=== PATIENT | female | born 1980 | race African-American/Black ===

== ENCOUNTER → 2016-06-17 | Outpatient (CLI) | payer OTHER ==
[~2016-06-17] MED LIST: 'PARAFON FORTE500 M1 PO; AMOXICILLIN500 MG PO; AMOXIL500 MG PO; ANAPROX DS550 MG PO; ANTIVERT/2525 MG PO; AUGMENTIN 875875 MG PO; CATAFLAM50 MG PO; CETIRIZINE HYDR10 MG PO; CIPRO500 MG PO; CIPROFLOXACIN500 MG PO; CYCLOBENZAPRINE10 MG PO; FLEXERIL10 MG PO; Fioricet 325 MG1 TAB PO; GOOD NEIGHBOR L10 MG PO; HYDROCODONE BIT1 T11 PO; KEFLEX500 MG PO; LOMOTIL 0.025 M1 TA1 PO; LOPRESSOR25 MG PO; MACROBID100 M1 PO; METRONIDAZOLE500 M1 PO; MOBIC15 MG PO; MOTRIN800 MG PO; NAPROSYN500 MG PO; NEURONTIN300 MG PO; NKHM; ORUDIS75 MG PO; OVRAL-21 50 MCG1 TAB PO; PENICILLIN VK500 MG PO; PERCOCET 325 MG1 TA2 PO; PERCOCET 325 MG1 TA6 PO; PRILOSEC20 MG PO; TOPIRAMATE50 MG PO; TRAMADOL HCL50 MG PO; ULTRAM50 MG PO; VIBRAMYCIN100 MG PO; VICODIN 500 MG-1 TAB PO; VITAMIN D50000 I3 PO; ZOFRAN ODT4 MG SL
[2016-06-18 16:06] LABS: HEPATITIS C VIRUS ANTIBODY <0.1 s/co (0.0-0.9)
[2016-06-19 07:05] LABS: HIV 1+2 AB + HIV1 P24 AG Non Reactive (Non Reactive)
== END | disposition home or self-care (01) ==
LOC: LAB 10:29
PROVIDERS: Internal Medicine
DX: Z71.1 Person with feared health complaint in whom no diagnosis is made (principal)

== ENCOUNTER 2016-07-01 21:20 | Emergency (ER) | payer OTHER ==
[~2016-07-01] VITALS: Ht 167.6 cm; Wt 83.0 kg
[2016-07-01] MEDS ORDERED: IBUPROFEN600 MG PO (21:28)
[2016-07-01] MEDS ORDERED: Cimetidine300 MG PO (21:28)
[2016-07-01 21:29] VITALS: BP 153/90
[2016-07-01] MEDS ORDERED: CYCLOBENZAPRINE10 MG PO (21:29)
[2016-07-01] MEDS ORDERED: ANAPROX DS550 MG PO (22:39)
[2016-07-01] MEDS ORDERED: Orphenadrine C100 MG PO (22:39)
[2016-07-01] MEDS ORDERED: ULTRAM50 MG PO (22:45)
== END 2016-07-01 22:59 | disposition home or self-care (01) ==
LOC: ED 21:20
DX: S16.1XXA Strain of muscle, fascia and tendon at neck level, initial encounter (principal); S39.012A Strain of muscle, fascia and tendon of lower back, initial encounter; G43.909 Migraine, unspecified, not intractable, without status migrainosus; Z88.0 Allergy status to penicillin; Z88.6 Allergy status to analgesic agent; V49.9XXA Car occupant (driver) (passenger) injured in unspecified traffic accident, initial encounter; Y93.89 Activity, other specified; Y92.413 State road as the place of occurrence of the external cause; Y99.9 Unspecified external cause status

== ENCOUNTER 2016-07-09 11:09 | Emergency (ER) | payer OTHER ==
[~2016-07-09] VITALS: Ht 165.1 cm; Wt 83.0 kg
[~2016-07-09 11:09] MED LIST changes: +Cimetidine300 MG PO; +IBUPROFEN600 MG PO; +Orphenadrine C100 MG PO
[2016-07-09 11:32] VITALS: BP 125/93
== END 2016-07-09 13:31 | disposition home or self-care (01) ==
LOC: ED 11:09
DX: M79.621 Pain in right upper arm (principal); R03.0 Elevated blood-pressure reading, without diagnosis of hypertension; Z88.0 Allergy status to penicillin; Z88.6 Allergy status to analgesic agent; Z79.899 Other long term (current) drug therapy

== ENCOUNTER → 2016-12-15 | Outpatient (CLI) | payer OTHER | END | disposition home or self-care (01) | LOC: RAD 11:41 | DX: M79.675 Pain in left toe(s) (principal); S73.102D Unspecified sprain of left hip, subsequent encounter; X58.XXXD Exposure to other specified factors, subsequent encounter ==

== ENCOUNTER 2016-12-27 00:27 | Emergency (ER) | payer OTHER ==
[~2016-12-27] VITALS: Ht 167.6 cm; Wt 90.7 kg
[2016-12-27 00:43] LABS: BASO % 0.1 % (0.0-1.0); EOS # 0.1 10*3/uL (0.0-0.4); HEMATOCRIT 37.4 % (37.0-47.0); HEMOGLOBIN 12.4 g/dl (12.0-16.0); LYMPH # 3.4 10*3/uL (1.3-4.4); LYMPH % 48.2 % (27.0-41.0); MEAN CORPUSCULAR HGB 29.5 pg (27.0-31.0); MEAN CORPUSCULAR HGB CONC 33.2 g/dl (33.0-37.0); MEAN PLATELET VOLUME 8.6 fl (9.6-12.3); MONO # 0.5 10*3/uL (0.1-1.0); MONO % 6.7 % (3.0-9.0); NEUT # 3.1 10*3/uL (2.3-7.9); NEUT % 43.7 % (47.0-73.0); PLATELET COUNT AUTOMATED 262 10*3/uL (130-400); RED CELL DISTRI WIDTH 13.6 % (0-14.5); WHITE BLOOD COUNT 7.1 10*3/uL (4.8-10.8)
[2016-12-27 00:53] LABS: ACT PARTIAL THROMBO TIME 21.1 SECONDS (20.8-31.5)
[2016-12-27 01:00] LABS: ALBUMIN 3.8 gm/dl (3.1-4.5); ALKALINE PHOSPHATASE 48 U/L (45-117); BUN 11 mg/dl (7-24); CHLORIDE 110 mmol/L (98-107); CREATININE 0.86 mg/dL (0.55-1.02); POTASSIUM 3.9 mmol/L (3.5-5.1); SGOT/AST 20 IU/L (3-35); SGPT/ALT 26 U/L (12-78); SODIUM 142 mmol/L (136-145); TOTAL PROTEIN 7.4 gm/dL (6.4-8.2)
[2016-12-27 01:02] LABS: TROPONIN I < 0.015 ng/ml (<0.045)
[2016-12-27 02:05] VITALS: BP 117/81
== END 2016-12-27 02:58 | disposition home or self-care (01) ==
LOC: ED 00:27
PROVIDERS: Student in an Organized Health Care Education/Training Program
DX: R07.89 Other chest pain (principal); G43.909 Migraine, unspecified, not intractable, without status migrainosus; Z88.0 Allergy status to penicillin; Z88.6 Allergy status to analgesic agent

== ENCOUNTER → 2017-02-16 | Outpatient (CLI) | payer OTHER | END | disposition home or self-care (01) | LOC: US 13:00 | DX: N94.6 Dysmenorrhea, unspecified (principal) ==

== ENCOUNTER 2017-02-19 08:13 | Emergency (ER) | payer OTHER ==
[~2017-02-19] VITALS: Ht 165.1 cm; Wt 86.2 kg
[2017-02-19 08:31] VITALS: BP 112/81
[2017-02-19] MEDS ORDERED: ZITHROMAX250 MG PO (08:52)
== END 2017-02-19 09:00 | disposition home or self-care (01) ==
LOC: ED 08:13
DX: J20.9 Acute bronchitis, unspecified (principal); G43.909 Migraine, unspecified, not intractable, without status migrainosus; Z79.899 Other long term (current) drug therapy; Z88.0 Allergy status to penicillin; Z88.5 Allergy status to narcotic agent

== ENCOUNTER → 2017-06-28 | Outpatient (CLI) | payer OTHER ==
[~2017-06-28] MED LIST changes: +ZITHROMAX250 MG PO
== END | disposition home or self-care (01) ==
LOC: LAB 10:34
PROVIDERS: Psychiatry & Neurology Neurology
DX: R20.2 Paresthesia of skin (principal)

== ENCOUNTER → 2017-08-27 | Outpatient (CLI) | payer OTHER ==
[~2017-08-27] MED LIST changes: +MOTION SICKNESS25 M5 PO
== END | disposition home or self-care (01) ==
LOC: RAD 14:39
DX: M54.2 Cervicalgia (principal); V89.2XXD Person injured in unspecified motor-vehicle accident, traffic, subsequent encounter

== ENCOUNTER → 2017-09-03 | Outpatient (CLI) | payer OTHER ==
--- NOTE | ~2017-09-03 | HM ---
[place], [place] HOLTER MONITOR REPORT NAME: LYNNETTE SALVADOR [facility]: [id number] UNIT #: [id number] ROOM: DOCTOR: MARILUZ WESTBROOK MD BIRTHDATE: [birth year] DOS: 09/05/2017 A 48-HOUR HOLTER MONITOR Study was recorded from 09/03/2017 through 09/05/2017. The recording was analyzed. The images interpreted and this dictation was done on 09/05/2017. INDICATIONS: Palpitations. REFERRED BY: Dio Renteria MD PROCEDURE: The patient's heart was monitored utilizing a Holter device for 48 hours. The baseline rhythm was sinus with an average heart rate of 79 beats per minute. The heart rate in sinus rhythm ranged from 45 beats per minute to 145 beats per minute. Frequent premature ventricular contractions were recorded and represented about 2% of all her heart beats. Several episodes of ventricular bigeminy and occasional couplets were seen. The patient had rare premature atrial contractions with one atrial couplet. No prolonged pauses were seen. The patient noted dizziness in her diary. At that time, she had a heart rate of 99 beats per minute with ventricular bigeminy. On another occasion, when she complained of dizziness while eating, she was in sinus tachycardia with a heart rate of 105. She also complained of a sharp pain while lying down. She was in sinus rhythm at a rate of 67 without any arrhythmias. IMPRESSION: 1. Frequent premature ventricular contractions with bigeminy and couplets. There was no ventricular tachycardia noted. 2. The patient complained of dizziness and chest pain. She did have sinus tachycardia and frequent PVCs during dizziness, but no findings during chest pain. MARILUZ WESTBROOK MD CM:HOLTER:HOLTER MONITOR REPORT [id number] MARILUZ WESTBROOK MD
== END | disposition home or self-care (01) ==
LOC: CARD 09:57
DX: I49.3 Ventricular premature depolarization (principal); R00.2 Palpitations

== ENCOUNTER → 2017-09-12 | Outpatient (CLI) | payer OTHER | END | disposition home or self-care (01) | LOC: CANPRECLI → CARD 02:14 | DX: I10 Essential (primary) hypertension (principal); R00.2 Palpitations ==

== ENCOUNTER 2017-10-08 13:04 | Emergency (ER) | payer OTHER ==
[~2017-10-08] VITALS: Ht 165.1 cm; Wt 85.7 kg
[~2017-10-08 13:04] MED LIST changes: -MOTION SICKNESS25 M5 PO
[2017-10-08 13:37] LABS: BASO % 0.3 % (0.0-1.0); EOS # 0.1 10*3/uL (0.0-0.4); EOS % 1.2 % (1.0-4.0); HEMATOCRIT 38.5 % (37.0-47.0); HEMOGLOBIN 12.8 g/dl (12.0-16.0); LYMPH # 2.2 10*3/uL (1.3-4.4); LYMPH % 37.1 % (27.0-41.0); MEAN CELL VOLUME 87.5 fl (81.0-99.0); MEAN CORPUSCULAR HGB 29.1 pg (27.0-31.0); MEAN CORPUSCULAR HGB CONC 33.2 g/dl (33.0-37.0); MEAN PLATELET VOLUME 8.9 fl (9.6-12.3); MONO # 0.5 10*3/uL (0.1-1.0); MONO % 8.3 % (3.0-9.0); NEUT # 3.1 10*3/uL (2.3-7.9); NEUT % 52.1 % (47.0-73.0); PLATELET COUNT AUTOMATED 251 10*3/uL (130-400); RED CELL DISTRI WIDTH 12.5 % (0-14.5)
[2017-10-08 13:47] LABS: ALBUMIN 3.8 gm/dl (3.1-4.5); ALKALINE PHOSPHATASE 58 U/L (45-117); BUN 14 mg/dl (7-24); CHLORIDE 107 mmol/L (98-107); CREATININE 0.98 mg/dL (0.55-1.02); POTASSIUM 3.9 mmol/L (3.5-5.1); SGOT/AST 14 IU/L (3-35); SGPT/ALT 22 U/L (12-78); SODIUM 142 mmol/L (136-145); TOTAL PROTEIN 7.1 gm/dL (6.4-8.2)
[2017-10-08 13:52] LABS: BILIRUBIN NEGATIVE (NEGATIVE); BLOOD 1+ (NEGATIVE); CLARITY CLEAR (CLEAR); COLOR YELLOW (YELLOW); GLUCOSE NEGATIVE (NEGATIVE); KETONE NEGATIVE (NEGATIVE); LEUKO ESTERASE TRACE (NEGATIVE); NITRITE NEGATIVE (NEGATIVE); PH 5.5 (5.0-9.0); SPECIFIC GRAVITY >= 1.030 (1.005-1.030); UROBILINOGEN 0.2 E.U./dl (0.2-1.0)
[2017-10-08 14:03] LABS: BACTERIA 2+; MUCOUS TRACE; WBC 0-2 wbc/hpf (0-5)
[2017-10-08 14:30] VITALS: BP 124/72
[2017-10-08] MEDS ORDERED: MOTION SICKNESS25 M5 PO (14:46)
== END 2017-10-08 14:44 | disposition home or self-care (01) ==
LOC: ED 13:04
PROVIDERS: Emergency Medicine
DX: H83.09 Labyrinthitis, unspecified ear (principal); R51 Headache; Z88.0 Allergy status to penicillin; Z88.6 Allergy status to analgesic agent; Z88.1 Allergy status to other antibiotic agents; Z79.899 Other long term (current) drug therapy

== ENCOUNTER → 2017-12-03 | Outpatient (CLI) | payer OTHER ==
[~2017-12-03] MED LIST changes: +MOTION SICKNESS25 M5 PO
== END | disposition home or self-care (01) ==
LOC: US 12:21
DX: N83.209 Unspecified ovarian cyst, unspecified side (principal); R93.8 Abnormal findings on diagnostic imaging of other specified body structures

== ENCOUNTER → 2018-01-08 | Outpatient (CLI) | payer OTHER | END | disposition home or self-care (01) | LOC: LAB 10:57 | DX: R53.83 Other fatigue (principal) ==

== ENCOUNTER 2018-12-02 21:25 | Emergency (ER) | payer OTHER ==
[~2018-12-02] VITALS: Ht 165.1 cm; Wt 81.6 kg
[2018-12-02 21:27] VITALS: BP 129/83
== END 2018-12-02 22:12 | disposition home or self-care (01) ==
LOC: ED 21:25
DX: S09.90XA Unspecified injury of head, initial encounter (principal); G43.909 Migraine, unspecified, not intractable, without status migrainosus; Z88.0 Allergy status to penicillin; Z88.2 Allergy status to sulfonamides; Z88.6 Allergy status to analgesic agent; Z79.899 Other long term (current) drug therapy; W22.8XXA Striking against or struck by other objects, initial encounter; Y93.89 Activity, other specified; Y92.89 Other specified places as the place of occurrence of the external cause; Y99.8 Other external cause status

== ENCOUNTER → 2019-01-03 | Outpatient (CLI) | payer OTHER | END | disposition home or self-care (01) | LOC: RAD 08:00 | DX: R13.10 Dysphagia, unspecified (principal); K21.9 Gastro-esophageal reflux disease without esophagitis ==

== ENCOUNTER → 2019-01-30 | Outpatient (CLI) | payer OTHER ==
--- NOTE | ~2019-01-30 | HM ---
[place], [place] HOLTER MONITOR REPORT NAME: LYNNETTE SALVADOR UNIT #: [id number] ROOM: DOCTOR: THA SUAREZ MD BIRTHDATE: [birth year] DOS: 02/04/2019 The patient remained in sinus rhythm throughout the entire period. Minimum heart rate is 49, maximum heart rate 167, average is 83 beats per minute. The patient remained in sinus rhythm, few episodes of sinus tachycardia. No ventricular or supraventricular dysrhythmia except for isolated premature ventricular contractions. No significant pauses. The longest pause is 1.4 seconds. FINAL IMPRESSION: Sinus rhythm, few episodes of sinus tachycardia, isolated PVCs and PACs, no bradycardic episodes. No significant pauses. THA SUAREZ MD CM:HOLTER:HOLTER MONITOR REPORT [id number] THA SUAREZ MD
== END | disposition home or self-care (01) ==
LOC: CARD 08:00
DX: R00.2 Palpitations (principal); R06.02 Shortness of breath; R42 Dizziness and giddiness

== ENCOUNTER → 2020-03-24 | Outpatient (CLI) | payer OTHER | END | disposition home or self-care (01) | LOC: RAD 09:32 | PROVIDERS: ATTEND Podiatrist | DX: M79.675 Pain in left toe(s) (principal); R60.0 Localized edema; Z98.890 Other specified postprocedural states ==

== ENCOUNTER → 2020-03-31 | Outpatient (CLI) | payer OTHER | END | disposition home or self-care (01) | LOC: MAMMO 08:48 | PROVIDERS: ATTEND Nurse Practitioner Women's Health | DX: R92.1 Mammographic calcification found on diagnostic imaging of breast (principal); N64.4 Mastodynia ==

== ENCOUNTER → 2020-08-12 | Outpatient (CLI) | payer OTHER | END | disposition home or self-care (01) | LOC: RAD 14:41 | PROVIDERS: ATTEND Family Medicine | DX: R07.9 Chest pain, unspecified (principal) ==

== ENCOUNTER → 2020-11-23 | Outpatient (CLI) | payer OTHER | END | disposition home or self-care (01) | LOC: CARD 09:00 | PROVIDERS: ATTEND Internal Medicine Cardiovascular Disease | DX: R00.0 Tachycardia, unspecified (principal); R00.2 Palpitations ==

== ENCOUNTER → 2020-12-17 | Outpatient (CLI) | payer OTHER | END | disposition home or self-care (01) | LOC: COVID19 16:08 | PROVIDERS: ATTEND Internal Medicine | DX: Z11.52 Encounter for screening for COVID-19 (principal) ==

== ENCOUNTER → 2021-02-02 | Outpatient (CLI) | payer OTHER ==
[~2021-02-02] MED LIST changes: +VITAMIN C500 M4 PO; +ZINC50 M3 PO
== END | disposition home or self-care (01) ==
LOC: COVID19 15:42
PROVIDERS: ATTEND Internal Medicine
DX: U07.1 COVID-19 (principal)

== ENCOUNTER 2021-02-04 11:24 | Emergency (ER) | payer OTHER ==
[~2021-02-04] VITALS: Ht 165.1 cm; Wt 85.7 kg
[~2021-02-04 11:24] MED LIST changes: -VITAMIN C500 M4 PO; -ZINC50 M3 PO
[2021-02-04] MEDS ORDERED: VITAMIN C500 M4 PO (11:36)
[2021-02-04 12:32] LABS: HEMATOCRIT 39.8 % (37.0-47.0); MEAN CELL VOLUME 89.4 fl (81.0-99.0); MEAN CORPUSCULAR HGB 28.8 pg (27.0-31.0); MEAN CORPUSCULAR HGB CONC 32.2 g/dl (33.0-37.0); MEAN PLATELET VOLUME 9.1 fl (9.6-12.3); PLATELET COUNT AUTOMATED 177 10*3/uL (130-400); RED BLOOD COUNT 4.45 10*6/uL (4.10-5.10); RED CELL DISTRI WIDTH 12.4 % (0-14.5); WHITE BLOOD COUNT 2.7 10*3/uL (4.8-10.8)
[2021-02-04 12:50] LABS: ALBUMIN 3.2 gm/dl (3.1-4.5); ALKALINE PHOSPHATASE 49 U/L (45-117); BUN 10 mg/dl (7-24); CHLORIDE 112 mmol/L (98-107); CREATININE 0.83 mg/dL (0.55-1.02); POTASSIUM 4.1 mmol/L (3.5-5.1); SGOT/AST 20 IU/L (3-35); SGPT/ALT 32 U/L (12-78); SODIUM 140 mmol/L (136-145); TOTAL PROTEIN 6.7 gm/dL (6.4-8.2)
[2021-02-04 12:55] LABS: ATYPICAL LYMPHS 2 % (0-0); BURR CELLS FEW; OVALOCYTES FEW; SCHISTOCYTES FEW; TOTAL CELLS COUNTED 100 #CELLS
[2021-02-04 12:56] LABS: PLATELET SUFFICIENCY NORMAL (NORMAL)
[2021-02-04 13:08] LABS: TROPONIN I < 0.015 ng/ml (<0.045)
[2021-02-04] MEDS ORDERED: ZINC50 M3 PO (14:25)
[2021-02-04 14:45] VITALS: BP 141/88
== END 2021-02-04 14:48 | disposition home or self-care (01) ==
LOC: ED 11:24
PROVIDERS: Nurse Practitioner Family
DX: U07.1 COVID-19 (principal); Z79.899 Other long term (current) drug therapy; Z88.0 Allergy status to penicillin; Z88.2 Allergy status to sulfonamides; Z88.6 Allergy status to analgesic agent

== ENCOUNTER → 2021-05-03 | Outpatient (CLI) | payer OTHER ==
[~2021-05-03] MED LIST changes: +VITAMIN C500 M4 PO; +ZINC50 M3 PO
== END | disposition home or self-care (01) ==
LOC: RAD 15:47
PROVIDERS: ATTEND Chiropractor
DX: M54.50 Low back pain, unspecified (principal)

== ENCOUNTER → 2021-06-15 | Outpatient (CLI) | payer OTHER | END | disposition home or self-care (01) | LOC: MAMMO 06-02 14:30 | PROVIDERS: ATTEND Nurse Practitioner Women's Health | DX: Z12.31 Encounter for screening mammogram for malignant neoplasm of breast (principal) ==

== ENCOUNTER → 2021-11-02 | Outpatient (CLI) | payer OTHER ==
[2021-11-02 14:42] LABS: BUN 10 mg/dl (7-24); CHLORIDE 107 mmol/L (98-107); CREATININE 0.98 mg/dL (0.55-1.02); POTASSIUM 3.7 mmol/L (3.5-5.1); SODIUM 138 mmol/L (136-145)
== END | disposition home or self-care (01) ==
LOC: LAB 13:55
PROVIDERS: ATTEND Internal Medicine Nephrology
DX: U07.1 COVID-19 (principal)

== ENCOUNTER → 2021-11-15 | Outpatient (CLI) | payer OTHER ==
[2021-11-15 10:55] LABS: BASO % 0.3 % (0.0-1.0); EOS % 0.5 % (1.0-4.0); HEMATOCRIT 37.8 % (37.0-47.0); LYMPH # 2.5 10*3/uL (1.3-4.4); LYMPH % 37.9 % (27.0-41.0); MEAN CELL VOLUME 89.8 fl (81.0-99.0); MEAN CORPUSCULAR HGB 29.5 pg (27.0-31.0); MEAN CORPUSCULAR HGB CONC 32.8 g/dl (33.0-37.0); MEAN PLATELET VOLUME 8.3 fl (9.6-12.3); MONO # 0.6 10*3/uL (0.1-1.0); MONO % 9.9 % (3.0-9.0); NEUT # 3.3 10*3/uL (2.3-7.9); NEUT % 50.9 % (47.0-73.0); PLATELET COUNT AUTOMATED 260 10*3/uL (130-400); RED BLOOD COUNT 4.21 10*6/uL (4.10-5.10); RED CELL DISTRI WIDTH 12.2 % (0-14.5); WHITE BLOOD COUNT 6.5 10*3/uL (4.8-10.8)
[2021-11-15 11:16] LABS: ALKALINE PHOSPHATASE 55 U/L (45-117); BUN 11 mg/dl (7-24); CHLORIDE 112 mmol/L (98-107); POTASSIUM 4.1 mmol/L (3.5-5.1); SGOT/AST 10 IU/L (3-35); SGPT/ALT 17 U/L (12-78); SODIUM 142 mmol/L (136-145); TOTAL PROTEIN 6.6 gm/dL (6.4-8.2)
== END | disposition home or self-care (01) ==
LOC: LAB 10:25 → CARD 10:30
PROVIDERS: ATTEND Internal Medicine Nephrology
DX: R00.2 Palpitations (principal)

== ENCOUNTER → 2022-08-10 | Outpatient (CLI) | payer OTHER | END | disposition home or self-care (01) | LOC: RAD 14:41 | PROVIDERS: ATTEND Internal Medicine Nephrology | DX: G43.119 Migraine with aura, intractable, without status migrainosus (principal); M50.322 Other cervical disc degeneration at C5-C6 level; M50.323 Other cervical disc degeneration at C6-C7 level; M48.02 Spinal stenosis, cervical region ==

== ENCOUNTER → 2022-09-15 | Outpatient (CLI) | payer OTHER | END | disposition home or self-care (01) | LOC: CT 00:12 | PROVIDERS: ATTEND Specialist | DX: R59.1 Generalized enlarged lymph nodes (principal) ==

== ENCOUNTER → 2022-11-21 | Outpatient (CLI) | payer OTHER | END | disposition home or self-care (01) | LOC: CARD 02:33 | PROVIDERS: ATTEND Internal Medicine Nephrology | DX: G43.109 Migraine with aura, not intractable, without status migrainosus (principal); I49.1 Atrial premature depolarization; I49.3 Ventricular premature depolarization ==

== ENCOUNTER → 2022-11-30 | Outpatient (CLI) | payer OTHER ==
[2022-12-01 06:08] LABS: HBSAG Negative (Negative); HEP B CORE AB, IGM Negative (Negative); HEPATITIS C ANTIBODY Non Reactive (Non Reactive)
== END | disposition home or self-care (01) ==
LOC: LAB 14:46
PROVIDERS: ATTEND Internal Medicine Nephrology
DX: Z11.3 Encounter for screening for infections with a predominantly sexual mode of transmission (principal)

== ENCOUNTER → 2023-08-28 | Outpatient (CLI) | payer OTHER | LOC: MAMMO 16:30 | PROVIDERS: ATTEND Nurse Practitioner Women's Health | DX: Z12.31 Encounter for screening mammogram for malignant neoplasm of breast (principal) ==

== ENCOUNTER 2024-01-15 20:24 | Emergency (ER) | payer OTHER ==
[~2024-01-15] VITALS: Ht 165.1 cm; Wt 97.1 kg
[2024-01-15 20:24] VITALS: BP 158/98
[2024-01-15] MEDS ORDERED: ADIPEX-P37.5 M2 PO (20:36)
[2024-01-15 20:43] LABS: BASO % 0.3 % (0.0-1.0); EOS # 0.1 10*3/uL (0.0-0.4); EOS % 0.6 % (1.0-4.0); HEMATOCRIT 41.6 % (37.0-47.0); LYMPH # 3.8 10*3/uL (1.3-4.4); LYMPH % 38.1 % (27.0-41.0); MEAN CELL VOLUME 87.9 fl (81.0-99.0); MEAN CORPUSCULAR HGB CONC 32.9 g/dl (33.0-37.0); MEAN PLATELET VOLUME 8.3 fl (9.6-12.3); MONO # 0.8 10*3/uL (0.1-1.0); MONO % 8.1 % (3.0-9.0); NEUT # 5.2 10*3/uL (2.3-7.9); NEUT % 52.3 % (47.0-73.0); PLATELET COUNT AUTOMATED 303 10*3/uL (130-400); RED BLOOD COUNT 4.73 10*6/uL (4.10-5.10); RED CELL DISTRI WIDTH 12.3 % (0-14.5); WHITE BLOOD COUNT 9.9 10*3/uL (4.8-10.8)
[2024-01-15 21:03] LABS: ALKALINE PHOSPHATASE 62 U/L (46-116); BUN 10 mg/dl (9-23); CHLORIDE 105 mmol/L (98-107); POTASSIUM 3.8 mmol/L (3.4-5.1); SGPT/ALT 22 U/L (5-49); TOTAL PROTEIN 7.6 gm/dL (6.0-8.0)
== END 2024-01-15 23:47 | disposition home or self-care (01) ==
LOC: ED 20:24
PROVIDERS: Internal Medicine
DX: R07.89 Other chest pain (principal); R00.2 Palpitations; R00.0 Tachycardia, unspecified; I48.91 Unspecified atrial fibrillation; G43.909 Migraine, unspecified, not intractable, without status migrainosus; Z88.0 Allergy status to penicillin; Z88.5 Allergy status to narcotic agent; Z88.2 Allergy status to sulfonamides; Z88.8 Allergy status to other drugs, medicaments and biological substances; Z98.51 Tubal ligation status; Z98.890 Other specified postprocedural states

== ENCOUNTER → 2024-02-18 | Outpatient (CLI) | payer OTHER ==
[~2024-02-18] MED LIST changes: +ADIPEX-P37.5 M2 PO
[2024-02-18 16:12] LABS: ALKALINE PHOSPHATASE 52 U/L (46-116); BUN 10 mg/dl (9-23); CHLORIDE 105 mmol/L (98-107); POTASSIUM 3.5 mmol/L (3.4-5.1); SGPT/ALT 14 U/L (5-49)
== END | disposition home or self-care (01) ==
LOC: CARD 03:12 → LAB 03:12 → CARD 09:30
PROVIDERS: Orthopaedic Surgery; ATTEND Internal Medicine Cardiovascular Disease
DX: R53.83 Other fatigue (principal); R06.02 Shortness of breath; M25.559 Pain in unspecified hip

== ENCOUNTER → 2024-06-24 | Outpatient (CLI) | payer OTHER | END | disposition home or self-care (01) | LOC: US 03:35 | PROVIDERS: ATTEND Internal Medicine Nephrology | DX: N85.8 Other specified noninflammatory disorders of uterus (principal); R10.30 Lower abdominal pain, unspecified ==

== ENCOUNTER → 2024-07-03 | Outpatient (CLI) | payer OTHER ==
[2024-07-03 16:30] LABS: BASO % 0.3 % (0.0-1.0); EOS # 0.1 10*3/uL (0.0-0.4); EOS % 1.4 % (1.0-4.0); HEMATOCRIT 38.8 % (37.0-47.0); MEAN CELL VOLUME 90.2 fl (81.0-99.0); MEAN CORPUSCULAR HGB 29.1 pg (27.0-31.0); MEAN CORPUSCULAR HGB CONC 32.2 g/dl (33.0-37.0); MEAN PLATELET VOLUME 8.6 fl (9.6-12.3); MONO # 0.5 10*3/uL (0.1-1.0); MONO % 7.9 % (3.0-9.0); NEUT # 2.8 10*3/uL (2.3-7.9); NEUT % 48.5 % (47.0-73.0); PLATELET COUNT AUTOMATED 269 10*3/uL (130-400); RED CELL DISTRI WIDTH 12.4 % (0-14.5); WHITE BLOOD COUNT 5.8 10*3/uL (4.8-10.8)
[2024-07-03 17:14] LABS: ALKALINE PHOSPHATASE 46 U/L (46-116); BUN 11 mg/dl (9-23); CHLORIDE 105 mmol/L (98-107); FREE T4 0.98 ng/dl (0.89-1.76); POTASSIUM 3.9 mmol/L (3.4-5.1); SGPT/ALT 20 U/L (5-49); TOTAL PROTEIN 6.9 gm/dL (6.0-8.0)
== END | disposition home or self-care (01) ==
LOC: LAB 16:09
PROVIDERS: Internal Medicine Nephrology; ATTEND Internal Medicine Nephrology
DX: R07.89 Other chest pain (principal)

== ENCOUNTER → 2024-07-11 | Outpatient (CLI) | payer OTHER | END | disposition home or self-care (01) | LOC: LAB 15:26 | PROVIDERS: ATTEND Nurse Practitioner Women's Health | DX: R35.0 Frequency of micturition (principal) ==

== ENCOUNTER → 2025-01-06 | Outpatient (CLI) | payer OTHER ==
[~2025-01-06] MED LIST changes: +ATENOLOL25 MG PO
== END | disposition home or self-care (01) ==
LOC: CARD 02:57
PROVIDERS: ATTEND Internal Medicine Cardiovascular Disease
DX: I47.20 Ventricular tachycardia, unspecified (principal); R07.89 Other chest pain

== ENCOUNTER → 2025-02-11 | Outpatient (CLI) | payer OTHER ==
[2025-02-11 13:39] LABS: BASO # 0.0 10*3/uL (0.0-0.1); BASO % 0.1 % (0.0-1.0); EOS # 0.0 10*3/uL (0.0-0.4); EOS % 0.3 % (1.0-4.0); MEAN CELL VOLUME 87.7 fl (81.0-99.0); MEAN CORPUSCULAR HGB 29.2 pg (27.0-31.0); MEAN PLATELET VOLUME 8.7 fl (9.6-12.3); MONO # 0.5 10*3/uL (0.1-1.0); MONO % 6.7 % (3.0-9.0); NEUT # 4.0 10*3/uL (2.3-7.9); NEUT % 56.0 % (47.0-73.0); NUCLEATED RED BLOOD CELL 0.0 % (0.0-0.0); NUCLEATED RED BLOOD CELL 0.0 10*3/uL (0.0-0.0); PLATELET COUNT AUTOMATED 300 10*3/uL (130-400); RED CELL DISTRI WIDTH 12.9 % (0-14.5)
[2025-02-11 14:09] LABS: BUN 13 mg/dl (9-23); FREE T4 1.03 ng/dl (0.89-1.76); SGPT/ALT 13 U/L (5-49); VITAMIN D, 25-HYDROXY 26.9 ng/mL (30-100)
== END | disposition home or self-care (01) ==
LOC: MAMMO 02-10 17:00 → LAB 00:39 → MAMMO 14:00
PROVIDERS: Internal Medicine Nephrology; ATTEND Nurse Practitioner Women's Health
DX: Z12.31 Encounter for screening mammogram for malignant neoplasm of breast (principal); R42 Dizziness and giddiness

== ENCOUNTER → 2025-03-09 | Outpatient (CLI) | payer OTHER | END | disposition home or self-care (01) | LOC: US 03-02 09:30 | PROVIDERS: ATTEND Internal Medicine Nephrology | DX: I65.23 Occlusion and stenosis of bilateral carotid arteries (principal); R42 Dizziness and giddiness ==

== ENCOUNTER 2025-03-16 15:52 | Emergency (ER) | payer OTHER ==
[~2025-03-16] VITALS: Ht 165.1 cm; Wt 91.6 kg
[2025-03-16 16:44] VITALS: BP 140/109
[2025-03-16 17:36] LABS: BASO # 0.0 10*3/uL (0.0-0.1); BASO % 0.3 % (0.0-1.0); EOS # 0.0 10*3/uL (0.0-0.4); EOS % 0.7 % (1.0-4.0); MEAN CELL VOLUME 86.5 fl (81.0-99.0); MEAN CORPUSCULAR HGB 28.5 pg (27.0-31.0); MEAN PLATELET VOLUME 8.7 fl (9.6-12.3); MONO # 0.3 10*3/uL (0.1-1.0); MONO % 5.9 % (3.0-9.0); NEUT # 3.1 10*3/uL (2.3-7.9); NEUT % 55.0 % (47.0-73.0); NUCLEATED RED BLOOD CELL 0.0 % (0.0-0.0); NUCLEATED RED BLOOD CELL 0.0 10*3/uL (0.0-0.0); PLATELET COUNT AUTOMATED 244 10*3/uL (130-400); RED CELL DISTRI WIDTH 12.4 % (0-14.5)
[2025-03-16 17:58] LABS: BUN 6 mg/dl (9-23)
[2025-03-16] MEDS ORDERED: AMOX-CLAV 875-1 EACH PO (18:10)
[2025-03-16] MEDS ORDERED: PREDNISONE20 M1 PO (18:10)
[2025-03-16] MEDS ORDERED: Amoxicillin/Clavulanate Pota 875 MG TAB PO ONE (18:15)
== END 2025-03-16 18:38 | disposition home or self-care (01) ==
LOC: ED 15:52
PROVIDERS: Nurse Practitioner Family
DX: J40 Bronchitis, not specified as acute or chronic (principal); I48.91 Unspecified atrial fibrillation; G43.909 Migraine, unspecified, not intractable, without status migrainosus; I12.9 Hypertensive chronic kidney disease with stage 1 through stage 4 chronic kidney disease, or unspecified chronic kidney disease; N18.31 Chronic kidney disease, stage 3a; Z88.0 Allergy status to penicillin; Z88.1 Allergy status to other antibiotic agents; Z88.5 Allergy status to narcotic agent; Z98.890 Other specified postprocedural states; Z20.822 Contact with and (suspected) exposure to COVID-19